=== PATIENT | male | born 1990 | race Hispanic/Latino ===

== ENCOUNTER 2022-03-02 12:54 | Emergency (ER) | payer OTHER ==
[2022-03-02] MEDS ORDERED: Boostrix 0.5 ML (Tdap) VIAL (>/=7 yrs of age) ONE (13:12)
== END 2022-03-02 13:35 | disposition home or self-care (01) ==
LOC: NAV ERS 12:54
DX: S01.01XA Laceration without foreign body of scalp, initial encounter (principal); Y04.0XXA Assault by unarmed brawl or fight, initial encounter; Z23 Encounter for immunization
CPT/HCPCS: 12002; 90471; 90715